=== PATIENT | male | born 1970 | race Caucasian/White ===

== ENCOUNTER 2024-08-28 02:23 | Emergency (ER) | payer OTHER ==
[~2024-08-28] VITALS: Ht 177.8 cm; Wt 109.0 kg
[2024-08-28 02:50] VITALS: BP 180/117; PULSE 73; RESP 16; TEMP 99; O2SAT 98
[2024-08-28 03:30] LABS: EOSINOPHILS % 2.3 % (0.0-5.0); HEMOGLOBIN. 14.3 g/dL (14.0-18.0); LYMPHOCYTES % 32.6 % (20.0-50.0); MEAN CORPUSCULAR HEMOGLOBIN 31.2 pg (28.0-32.0); MEAN CORPUSCULAR HGB CONC 33.4 g/dL (31.0-37.0); MEAN CORPUSCULAR VOLUME 93.6 fL (80.0-94.0); MEAN PLATELET VOLUME 11.2 fl (7.4-10.4); MONOCYTES % 11.3 % (2.0-8.0); NEUTROPHILS % 52.8 % (40.0-76.0); PLATELET 159 x1000/uL (130-400); RED BLOOD CELL COUNT 4.59 mill/uL (4.7-6.1); RED CELL DISTRIBUTION WIDTH 12.9 % (11.6-14.6); WHITE BLOOD COUNT 7.2 x1000/uL (4.5-11.0)
[2024-08-28 03:39] LABS: CHLORIDE 105 mEq/L (98-107); POTASSIUM 3.7 mEq/L (3.5-5.1); SODIUM 138 mEq/L (136-145)
[2024-08-28 03:41] LABS: CALCIUM 9.2 mg/dL (8.7-10.4); CARBON DIOXIDE 24 mEq/L (21-32)
[2024-08-28 03:46] LABS: CREATININE 1.2 mg/dL (0.6-1.3); GLUCOSE 310 mg/dL (70-105); INR 0.9; PARTIAL THROMBOPLASTIN TIME 23.3 sec (23.4-31.0); PROTHROMBIN TIME 10.4 sec (9.6-11.0); UREA NITROGEN BLOOD 14 mg/dL (9-23)
[2024-08-28 03:48] LABS: TROPONIN I HIGH SENSITIVITY 14 ng/L (3.0-53)
[2024-08-28 03:54] LABS: ETHANOL BLOOD < 10 mg/dL (<10)
[2024-08-28] MEDS ORDERED: IBUP-2029 MT (05:24)
== END 2024-08-28 05:49 | disposition home or self-care (01) ==
LOC: ER 02:23
DX: G44.209 Tension-type headache, unspecified, not intractable (principal); R07.89 Other chest pain; F10.20 Alcohol dependence, uncomplicated; F17.200 Nicotine dependence, unspecified, uncomplicated; Y90.0 Blood alcohol level of less than 20 mg/100 ml
CPT/HCPCS: 36415; 71045; 80048; 80320; 83880; 84484; 85025; 93005; 99285; G0480